=== PATIENT | female | born 1990 | race Two or more races ===

== ENCOUNTER 2020-06-19 07:09 | Day surgery (SDC) | payer OTHER | END 2020-06-19 14:55 | disposition home or self-care (01) | LOC: CIR.AMB 07:09 | PROVIDERS: ATTEND Obstetrics & Gynecology | DX: O02.1 Missed abortion (principal); Z20.822 Contact with and (suspected) exposure to COVID-19 ==

== ENCOUNTER → 2020-11-01 | Outpatient (CLI) | payer OTHER | END | disposition home or self-care (01) | LOC: RX STUDY 10:13 | PROVIDERS: ATTEND Obstetrics & Gynecology | DX: N97.0 Female infertility associated with anovulation (principal); N94.89 Other specified conditions associated with female genital organs and menstrual cycle ==

== ENCOUNTER 2021-06-16 09:32 | Outpatient (CLI) | payer OTHER | END 2021-06-16 10:00 | disposition home or self-care (01) | LOC: NST 09:32 | PROVIDERS: ATTEND Obstetrics & Gynecology Maternal & Fetal Medicine | DX: Z34.83 Encounter for supervision of other normal pregnancy, third trimester (principal) ==

== ENCOUNTER 2021-07-14 12:45 | Inpatient (IN) | payer OTHER ==
[~2021-07-14] VITALS: Ht 165.1 cm; Wt 83.5 kg
[2021-07-16] MEDS ORDERED: PRENATAL VITAM1 EAC7 PO (01:02)
[2021-07-16] MEDS ORDERED: TUMS200 MG PO (01:04)
== END 2021-07-25 12:29 | disposition home or self-care (01) | DRG 807 ==
LOC: LDR 07-23 06:31 → OB/GYN 07-23 12:45 → SURG-SUITE 07-24 11:12
PROVIDERS: ADMIT Obstetrics & Gynecology Maternal & Fetal Medicine; ATTEND Obstetrics & Gynecology Maternal & Fetal Medicine
PROC: 10E0XZZ Delivery of Products of Conception, External Approach (ICD-10-PCS; principal; 2021-07-23)
PROC: 0UQGXZZ Repair Vagina, External Approach (ICD-10-PCS; 2021-07-23)
PROC: 4A1HXCZ Monitoring of Products of Conception, Cardiac Rate, External Approach (ICD-10-PCS; 2021-07-23)
DX: O71.4 Obstetric high vaginal laceration alone (principal); Z37.0 Single live birth; Z3A.39 39 weeks gestation of pregnancy; Z20.822 Contact with and (suspected) exposure to COVID-19

== ENCOUNTER 2021-07-16 00:27 | Outpatient (CLI) | payer OTHER ==
[2021-07-16] MEDS ORDERED: PRENATAL VITAM1 EAC7 PO (01:02)
[2021-07-16] MEDS ORDERED: TUMS200 MG PO (01:04)
== END 2021-07-16 09:23 | disposition home or self-care (01) ==
LOC: OBS/DEL 00:27
PROVIDERS: ATTEND Obstetrics & Gynecology
DX: O26.893 Other specified pregnancy related conditions, third trimester (principal); Z3A.38 38 weeks gestation of pregnancy

== ENCOUNTER → 2025-03-06 | Outpatient (CLI) | payer OTHER ==
[~2025-03-06] MED LIST: PRENATAL VITAM1 EAC7 PO; TUMS200 MG PO
[2025-03-06 15:19] VITALS: BP 113/82
== END | disposition home or self-care (01) ==
LOC: NST 14:46
PROVIDERS: ATTEND Obstetrics & Gynecology
DX: Z34.83 Encounter for supervision of other normal pregnancy, third trimester (principal)

== ENCOUNTER 2025-03-16 01:08 | Inpatient (IN) | payer OTHER ==
[~2025-03-16] VITALS: Ht 165.1 cm; Wt 82.6 kg
[2025-03-16] VITALS (8 sets, daily range): BP systolic 110–136; BP diastolic 70–83
[2025-03-16] MEDS ORDERED: RINGERS SOLUTION,LACTATED 1,000 ML IV SCH (01:15)
[2025-03-16] MEDS ORDERED: LIDOCAINE HCL 1% 10ML VIAL IJ ONE (01:45)
[2025-03-16] MEDS ORDERED: ERYTHROMYCIN BASE OPHT 1GM EACH TUBE OP ONE (01:45)
[2025-03-16] MEDS ORDERED: CHLORHEXIDINE GLUCONATE 120 ML BOTTLE TOP ONE (01:45)
[2025-03-16] MEDS ORDERED: OXYTOCIN 1,000 ML IV SCH (01:45)
[2025-03-16] MEDS ORDERED: CHLORHEXIDINE GLUCONATE 120 ML BOTTLE TP SCH (01:45)
[2025-03-16 01:52] LABS: BASO % 0.4 % (0.1-1.2); EOS # 0.10 (0.04-0.54); EOS % 1.0 % (0.7-7.0); LYMPH # 3.11 (1.18-3.74); LYMPH % 31.2 % (19.3-53.1); MEAN PLATELET VOLUME 10.20 fl (9.4-12.4); MONO # 0.68 (0.24-0.82); MONO % 6.8 % (4.7-12.5); NEUT # 5.94 (1.56-6.13); NEUT % 59.6 % (34.0-71.1); RED CELL DISTRIBUTION WIDTH 14.6 % (11.6-14.4)
[2025-03-16 02:15] LABS: INR < 0.93
[2025-03-16 02:20] LABS: ALT/SGPT 17.0 U/L (12-78); AST/SGOT 17.0 U/L (15-37); BILIRUBIN TOTAL 0.18 mg/dL (0.3-1.2); BUN CREA RATIO 15.0 (7.0-25.0); GFR 128.47; GLOBULINA 3.7 G/DL (2.4-3.5); GLUCOSE FASTING 107.0 mg/dL (65-100); OSMOLALITY SERUM 274.0 MOSM/KG (275-295)
[2025-03-16 02:45] LABS: CREATININE SERUM 0.54 mg/dL (0.55-1.02)
[2025-03-17] VITALS: BP 109/74
[2025-03-17 07:49] LABS: BASO % 0.5 % (0.1-1.2); EOS # 0.14 (0.04-0.54); EOS % 1.3 % (0.7-7.0); LYMPH # 2.58 (1.18-3.74); LYMPH % 24.1 % (19.3-53.1); MEAN PLATELET VOLUME 10.00 fl (9.4-12.4); MONO # 0.72 (0.24-0.82); MONO % 6.7 % (4.7-12.5); NEUT # 7.11 (1.56-6.13); NEUT % 66.6 % (34.0-71.1); RED CELL DISTRIBUTION WIDTH 14.6 % (11.6-14.4)
[2025-03-17 09:24] VITALS: BP 116/73
== END 2025-03-17 16:22 | disposition home or self-care (01) | DRG 807 ==
LOC: LDR 01:08 → OB/GYN 01:59
PROVIDERS: ADMIT Obstetrics & Gynecology; ATTEND Obstetrics & Gynecology
PROC: 10E0XZZ Delivery of Products of Conception, External Approach (ICD-10-PCS; principal; 2025-03-16)
PROC: 0UQG7ZZ Repair Vagina, Via Natural or Artificial Opening (ICD-10-PCS; 2025-03-16)
PROC: 4A1HXCZ Monitoring of Products of Conception, Cardiac Rate, External Approach (ICD-10-PCS; 2025-03-16)
DX: O71.4 Obstetric high vaginal laceration alone (principal); Z37.0 Single live birth; Z3A.38 38 weeks gestation of pregnancy